=== PATIENT | female | born 1990 | race Caucasian/White ===

== ENCOUNTER → 2019-10-18 | Outpatient (CLI) | payer OTHER | END | disposition home or self-care (01) | LOC: PRENATAL 14:30 | DX: O35.0XX0 Maternal care for (suspected) central nervous system malformation in fetus, not applicable or unspecified (principal); O35.3XX0 Maternal care for (suspected) damage to fetus from viral disease in mother, not applicable or unspecified; O99.89 Other specified diseases and conditions complicating pregnancy, childbirth and the puerperium ==

== ENCOUNTER → 2020-01-24 | Outpatient (CLI) | payer OTHER | END | disposition home or self-care (01) | LOC: PRENATAL 10:00 | DX: O26.843 Uterine size-date discrepancy, third trimester (principal); O99.89 Other specified diseases and conditions complicating pregnancy, childbirth and the puerperium; O36.8193 Decreased fetal movements, unspecified trimester, fetus 3 ==

== ENCOUNTER 2020-02-17 12:37 | Inpatient (IN) | payer OTHER ==
[~2020-02-17] VITALS: Ht 154.9 cm; Wt 2.7 kg
[2020-02-17] MEDS ORDERED: PRENATAL CAPLE1 EAC1 PO (14:18)
== END 2020-02-20 13:09 | disposition home or self-care (01) | DRG 806 ==
LOC: LDR 12:37 → OB/GYN 02-18 01:28
PROVIDERS: ADMIT Obstetrics & Gynecology
PROC: 10E0XZZ Delivery of Products of Conception, External Approach (ICD-10-PCS; principal; 2020-02-18)
PROC: 4A1HXFZ Monitoring of Products of Conception, Cardiac Rhythm, External Approach (ICD-10-PCS; 2020-02-18)
PROC: 3E033VJ Introduction of Other Hormone into Peripheral Vein, Percutaneous Approach (ICD-10-PCS; 2020-02-18)
DX: O26.843 Uterine size-date discrepancy, third trimester (principal); O41.03X0 Oligohydramnios, third trimester, not applicable or unspecified; Z37.0 Single live birth; Z3A.37 37 weeks gestation of pregnancy

== ENCOUNTER → 2020-02-17 | Outpatient (CLI) | payer OTHER ==
[~2020-02-17] MED LIST: CODE1TAB37 PO; MULTIVITAMINS1 EAC9 PO; NAPROXEN500 MG PO; NASAL MIST126 ML; PRENATAL CAPLE1 EAC1 PO
== END | disposition home or self-care (01) ==
LOC: PRENATAL 09:57
PROVIDERS: ATTEND Obstetrics & Gynecology
DX: O28.0 Abnormal hematological finding on antenatal screening of mother (principal); O36.8131 Decreased fetal movements, third trimester, fetus 1; O36.8311 Maternal care for abnormalities of the fetal heart rate or rhythm, first trimester, fetus 1; O09.523 Supervision of elderly multigravida, third trimester; O26.843 Uterine size-date discrepancy, third trimester; O41.03X1 Oligohydramnios, third trimester, fetus 1

== ENCOUNTER 2020-06-01 05:46 | Day surgery (SDC) | payer OTHER ==
[~2020-06-01 05:46] MED LIST changes: -CODE1TAB37 PO; -NAPROXEN500 MG PO
[2020-06-01] MEDS ORDERED: CODE1TAB37 PO (08:59)
[2020-06-01] MEDS ORDERED: NAPROXEN500 MG PO (09:00)
== END 2020-06-01 11:30 | disposition home or self-care (01) ==
LOC: CIR.AMB 05:46 → ADM 11:45 → CIR.AMB 11:45
PROVIDERS: ATTEND Obstetrics & Gynecology
DX: Z30.2 Encounter for sterilization (principal)

== ENCOUNTER 2021-06-16 14:06 | Emergency (ER) | payer OTHER ==
[~2021-06-16] VITALS: Ht 154.9 cm; Wt 65.3 kg
[~2021-06-16 14:06] MED LIST changes: +CODE1TAB37 PO; +NAPROXEN500 MG PO
== END 2021-06-16 20:52 | disposition home or self-care (01) ==
LOC: ER 14:06
DX: R42 Dizziness and giddiness (principal); E86.0 Dehydration; R53.1 Weakness

== ENCOUNTER 2021-11-21 18:48 | Emergency (ER) | payer OTHER ==
[~2021-11-21] VITALS: Ht 160 cm; Wt 59.0 kg
[2021-11-22] MEDS ORDERED: MOBIC15 MG PO (03:24)
[2021-11-22] MEDS ORDERED: CIPRO500 MG PO (03:24)
== END 2021-11-22 03:35 | disposition home or self-care (01) ==
LOC: ER 18:48
DX: N21.1 Calculus in urethra (principal); N13.30 Unspecified hydronephrosis